=== PATIENT | female | born 1985 | race Caucasian/White ===

== ENCOUNTER 2019-06-30 06:38 | Emergency (ER) | payer OTHER, SELFPAY ==
[2019-06-30 06:49] VITALS: BP 155/92; PULSE 93; RESP 18; TEMP 36.9; O2SAT 97
[2019-06-30 06:57] VITALS: BP 155/92; PULSE 93; RESP 18; TEMP 36.9; O2SAT 97
[2019-06-30 07:28] LABS: Add Manual Diff / Slide Review NO; Basophils Absolute Auto 100 /uL (0-100); Basophils Percent Auto 0.7 % (0-2); Eosinophils Absolute Auto 200 /uL (0-450); Eosinophils Percent Auto 2.6 % (2-4); Hematocrit 40.2 % (36-46); Hemoglobin 13.9 g/dL (12.0-16.0); Lymphocytes Absolute Auto 1500 /uL (1100-4500); Lymphocytes Percent Auto 17.4 % (25-40); Mean Corpuscular HGB Conc 34.5 % (30-36); Mean Corpuscular Hemoglobin 29.9 PG (26-34); Mean Corpuscular Volume 86.7 fL (80-100); Monocytes Absolute Auto 800 /uL (0-900); Monocytes Percent Auto 8.8 % (3-14); Neutrophils Absolute Auto 6300 /uL (1500-7000); Neutrophils Percent Auto 70.5 % (50-75); Platelet Count 410 X10^3/uL (150-400); Red Blood Cell Count 4.64 X10^6/uL (4.0-5.2); Red Cell Distribution Width 13.4 % (11.6-14.8); White Blood Cell Count 8.9 X10^3/uL (4.5-11.0)
[2019-06-30 07:33] LABS: Alanine Aminotransferase 24 IU/L (9-52); Albumin 3.9 g/dL (3.5-5.0); Albumin Globulin Ratio 1.3 (1.0-2.8); Alkaline Phosphatase 60 U/L (38-126); Aspartate Aminotransferase 23 IU/L (14-36); BUN Creatinine Ratio 16.4 (6-22); Bilirubin Total 0.7 mg/dL (0.2-1.3); Blood Urea Nitrogen 18 mg/dL (7-17); Calcium 9.4 mg/dL (8.4-10.2); Carbon Dioxide 30 mmol/L (22-32); Chloride 98 mmol/L (98-107); Estimated Glomerular Filt Rate 56.5 mL/min (>60); Globulin 2.9 g/dL (1.7-4.1); Glucose 163 mg/dL (70-100); HEMOLYSIS < 15 (0-50); Lipase 78 U/L (23-300); Potassium 3.7 mmol/L (3.4-5.1); Sodium 138 mmol/L (137-145); Total Protein 6.8 g/dL (6.3-8.2)
--- NOTE | 2019-06-30 07:33 | ED_ITS ---
HPI - Abdominal Pain General Chief Complaint: Abdominal Pain Stated Complaint: Vomiting and lower abdominal pain Time Seen by Provider: 06/30/19 07:01 Source: patient Mode of arrival: ambulatory Limitations: no limitations History of Present Illness HPI narrative: Patient is a 34 year old female with history of lupus, presenting with vomiting for 2 days and left lower quadrant pain. She feels hot and sweaty at times but usually right before she vomits. She has vomited numerous times over the past several days. MD complaint: abdominal pain Pain Consistency: intermittent Severity: moderate Quality: cramping Radiation: LLQ Related Data Home Medications Medication Instructions Recorded Confirmed candesartan 32 mg PO DAILY 06/30/19 06/30/19 carvedilol 12.5 mg PO [id number] 06/30/19 06/30/19 chlorthalidone 50 mg PO DAILY 06/30/19 06/30/19 escitalopram oxalate 10 mg PO DAILY 06/30/19 06/30/19 escitalopram oxalate 20 mg PO DAILY 06/30/19 06/30/19 hydroxychloroquine 400 mg PO DAILY 06/30/19 06/30/19 mycophenolate sodium 1,080 mg PO BID 06/30/19 06/30/19 quetiapine 25 mg PO DAILY 06/30/19 06/30/19 torsemide 60 mg PO [id number] 06/30/19 06/30/19 venlafaxine 37.5 mg PO BID 06/30/19 06/30/19 Previous Rx's Medication Instructions Recorded ondansetron 4 mg PO Q6-8H PRN #10 tab 06/30/19 Allergies Allergy/AdvReac Type Severity Reaction Status Date / Time cephalexin [CEPHALEXIN] Allergy Unknown Verified 06/30/19 07:33 Penicillins [PENICILLINS] Allergy Unknown Verified 06/30/19 07:33 Sulfa (Sulfonamide Allergy Unknown Verified 06/30/19 07:33 Antibiotics) [SULFA (SULFONAMIDE ANTIBIOTICS)] Review of Systems Review of Systems GENERAL: Denies chills, fatigue, malaise, fever, sweats, travel HEENT: Denies sinus pain, ear pain, sore throat, difficulty swallowing, neck pain RESPIRATORY: Denies dyspnea, cough, wheezing, hemoptysis, sputum. CARDIOVASCULAR: Denies chest pain, palpitations, orthopnea, edema GASTROINTESTINAL: See HPI : Denies dysuria, frequency, incontinence, hematuria, urinary retention, flank pain. MUSCULOSKELETAL: Denies weakness, joint pain, or bony pain SKIN: No rash, no erythema, no pruritus NEUROLOGIC: Denies weakness, dizziness, headache, numbness, change in speech, confusion PSYCHIATRIC: No concerning psychosocial issues. 12 point review of systems is negative except for those stated above and HPI [facility] Medical History Lupus (Acute) Social History Smoking Status: Current every day smoker Social History Smoking Status: Current every day smoker Exam Initial Vital Signs Initial Vital Signs: Vital Signs Temperature 98.5 F 06/30/19 06:49 Pulse Rate 93 H 06/30/19 06:49 Respiratory Rate 18 06/30/19 06:49 Blood Pressure 155/92 H 06/30/19 06:49 Pulse Oximetry 97 06/30/19 06:49 GENERAL: Well-appearing, well-nourished and in no acute distress. HEENT: Head atraumatic,EOMI, pupils reactive, face symmetric, moist mucous membranes CARDIOVASCULAR: Regular rate and rhythm without murmurs, rubs or gallops. RESPIRATORY: Breath sounds equal bilaterally, no wheezes rales or rhonchi. ABDOMEN: Soft, tender left lower quadrant no guarding no rebound positive bowel sounds EXTREMITIES: Normal range of motion, no clubbing or edema. Neurovascularly intact NEUROLOGICAL: Alert and oriented x4.Normal gait and speech. Cranial nerves II through XII grossly intact. SKIN: Warm, dry, no laceration, no petechiae, no rashes or lesions. Course Orders Ordered: ED Orders 06/30/19 06:40 Complete Blood Count AUTO DIFF Stat Comprehensive Metabolic Panel Stat Lipase Stat 06/30/19 07:20 Urine Microscopic Stat 06/30/19 08:11 CT abdomen pelvis wo con Stat Discontinued Medications Sodium Chloride (Normal Saline 0.9%) 1,000 mls @ 1,000 mls/hr IV CONT LLOYD Last Infusion: 06/30/19 08:49 Dose: 0 mls/hr Admin: 06/30/19 07:34 Dose: 1,000 mls/hr Morphine Sulfate (Morphine) 4 mg IV NOW ONE Stop: 06/30/19 07:28 Last Admin: 06/30/19 07:39 Dose: 4 mg Ondansetron HCl (Zofran) 4 mg IV NOW ONE Stop: 06/30/19 07:28 Last Admin: 06/30/19 07:37 Dose: 4 mg Ondansetron HCl (Zofran) 4 mg IV NOW ONE Stop: 06/30/19 09:22 Last Admin: 06/30/19 09:36 Dose: 4 mg Pantoprazole Sodium (Protonix) 40 mg IV NOW ONE Stop: 06/30/19 09:22 Last Admin: 06/30/19 09:39 Dose: 40 mg Vital Signs - 8 hr 06/30/19 06:49 06/30/19 06:57 06/30/19 07:36 Temperature 98.5 F 98.5 F Pulse Rate 93 H 93 H 84 Respiratory Rate 18 18 16 Blood Pressure 155/92 H 155/92 H Blood Pressure [Left Arm] 143/92 H Pulse Oximetry 97 97 97 06/30/19 09:15 06/30/19 09:45 Temperature Pulse Rate 73 72 Respiratory Rate 18 18 Blood Pressure Blood Pressure [Left Arm] 122/65 124/85 Pulse Oximetry 93 96 MDM - Abdominal Pain Lab Data Attestation: I reviewed the patient's lab results. Result diagrams: 06/30/19 06:40 06/30/19 06:40 Lab Results 06/30/19 06/30/19 06/30/19 Range/Units 06:40 06:40 07:20 WBC 8.9 (4.5-11.0) X10^3/uL RBC 4.64 (4.0-5.2) X10^6/uL Hgb 13.9 (12.0-16.0) g/dL Hct 40.2 (36-46) % MCV 86.7 (80-100) fL MCH 29.9 (26-34) PG MCHC 34.5 (30-36) % RDW 13.4 (11.6-14.8) % Plt Count 410 H (150-400) X10^3/uL Neut % (Auto) 70.5 (50-75) % Lymph % (Auto) 17.4 L (25-40) % Brown % (Auto) 8.8 (3-14) % Eos % (Auto) 2.6 (2-4) % Baso % (Auto) 0.7 (0-2) % Neut # (Auto) 6300 (0308-1103) /uL Lymph # (Auto) 1500 (7557-3334) /uL Brown # (Auto) 800 (0-900) /uL Eos # (Auto) 200 (0-450) /uL Baso # (Auto) 100 (0-100) /uL Sodium 138 (137-145) mmol/L Potassium 3.7 (3.4-5.1) mmol/L Chloride 98 (98-107) mmol/L Carbon Dioxide 30 (22-32) mmol/L BUN 18 H (7-17) mg/dL Creatinine 1.10 H (0.52-1.04) mg/dL Estimated GFR 56.5 L (>60) mL/min BUN/Creatinine Ratio 16.4 (6-22) Glucose 163 H (70-100) mg/dL Calcium 9.4 (8.4-10.2) mg/dL Total Bilirubin 0.7 (0.2-1.3) mg/dL AST 23 (14-36) IU/L ALT 24 (9-52) IU/L Alkaline Phosphatase 60 (38-126) U/L Total Protein 6.8 (6.3-8.2) g/dL Albumin 3.9 (3.5-5.0) g/dL Globulin 2.9 (1.7-4.1) g/dL Albumin/Globulin Ratio 1.3 (1.0-2.8) Lipase 78 (23-300) U/L Urine RBC 5-10/hpf H (0-5/HPF) Urine WBC 1-5/hpf (0-5/HPF) Ur Squamous Epith Cells 5-10 /hpf H (0-5/HPF) Amorphous Sediment 2+ Urine Bacteria None seen (None) Hyaline Casts 1-5/lpf (None) Ur Culture Indicated? Cult not indicated Point of care testing: Point of Care Testing Test Results Negative Urine Dip Bedside Urine Glucose Negative Bedside Urine Bilirubin ++ 2 Bedside Urine Ketone - Negative Urine Specific [place] 1.030 Bedside Urine Occult Blood ++ Bedside Urine pH 5.5 Bedside Urine Protein ++ 100 Bedside Urine Urobilinogen +/- 1mg Bedside Urine Nitrite - Negative Bedside Urine Leukocytes - Negative Esterase Imaging Data CT scan - abdomen: Radiologist's impression: PROCEDURE: CT ABDOMEN PELVIS WO CON INDICATIONS: left lower quad pain vomiting TECHNIQUE: Noncontrast 5 mm thick sections acquired from the diaphragms to the symphysis. 5 mm thick coronal and sagittal reformats were then performed. For radiation dose reduction, the following was used: automated exposure control, adjustment of mA and/or kV according to patient size. COMPARISON: None. FINDINGS: Image quality: Excellent. Lung bases: Lung bases are clear. Heart size is normal. Urinary system: Both kidneys are normal in size. No kidney stones. No hydronephrosis or perinephric fat stranding. Both ureters appear non-dilated throughout their expected courses. Bladder wall thickness is normal; no calcified bladder stones. Other solid organs: Liver is normal in size. Gallbladder appears normal. Pancreas is normal in contours. Spleen is normal in size. No adrenal nodules. Peritoneum and bowel: Unenhanced bowel loops demonstrate normal wall thickness and caliber. No free fluid or air. Nodes and vessels: No retroperitoneal or mesenteric adenopathy by size criteria. Aorta and inferior vena cava are normal in caliber. Abdominal wall: No ventral hernias. Pelvis: No free pelvic fluid. No inguinal hernias or adenopathy. Pelvic phleboliths on the right are present near the expected course of the distal right ureter but no ureteral stone is found and no hydroureter or hydronephrosis associated with fat appearance is present. Bones: No suspicious bony lesions. No vertebral body compression fractures. IMPRESSION: No clinical history is that of urinary tract infection and possible hydronephrosis or nephrolithiasis. No urinary tract stone is found, and no area of inflammation is identified. The study is performed without oral or intravenous contrast and depending on the clinical status followup by repeat CT scanning with contrast may be warranted if acute appendicitis or diverticulitis is clinically suspected. Dictated by: Jone Hahn M.D. on 06/30/2019 at 8:52 MDM Narrative Medical decision making narrative: Patient tolerating oral fluids overall feeling much better. At this time no cause of abdominal pain found. Discharge Plan Departure Patient Disposition: Home Clinical Impression: Gastroenteritis Discharge Date/Time: 06/30/19 10:33 Interventions: ED Discharge Assessment Last Done: 06/30/19 10:27 Instructions: DI for Viral Gastroenteritis -- Adult Activity Restrictions/Additional Instructions: *You have been diagnosed with gastroenteritis *What to do: At this time blood work and CT do not show any abnormality. Increase fluids as tolerated. *Continue to take medications as directed Zofran 4 mg every 6-8 hours if needed for nausea vomiting *Follow up with your primary care provider in 2-3 days *Return to ER if you should have increasing abdominal pain persistent vomiting not tolerating fluids or any new, worsening or concerning symptoms Prescriptions: New ondansetron 4 mg tablet,disintegrating 4 mg PO Q6-8H PRN (Reason: nausea and vomiting) Qty: 10 RF: 0 No Action quetiapine 25 mg tablet 25 mg PO DAILY RF: 0 carvedilol 12.5 mg tablet 12.5 mg PO BIDX30 RF: 0 torsemide 20 mg tablet 60 mg PO BIDX30 RF: 0 chlorthalidone 50 mg tablet 50 mg PO DAILY RF: 0 venlafaxine 37.5 mg tablet 37.5 mg PO BID RF: 0 candesartan 32 mg tablet 32 mg PO DAILY RF: 0 hydroxychloroquine 200 mg tablet 400 mg PO DAILY RF: 0 escitalopram oxalate 10 mg tablet 10 mg PO DAILY RF: 0 escitalopram oxalate 20 mg tablet 20 mg PO DAILY RF: 0 mycophenolate sodium 360 mg tablet,delayed release (DR/EC) 1,080 mg PO BID RF: 0
[2019-06-30] MEDS: SODIUM CHLORIDE 0.9% 1,000 ML 1000 ML IV (07:34)
[2019-06-30 07:36] VITALS: BP 143/92; PULSE 84; RESP 16; O2SAT 97
[2019-06-30 07:37] LABS: Bacteria Urine None Seen
[2019-06-30] MEDS: ONDANSETRON 4 MG/2 ML INJ IV ×2 (07:37→09:36)
[2019-06-30] MEDS: MORPHINE 4 MG/ML INJ IV (07:39)
[2019-06-30 07:44] LABS: RBC Urine 5-10/HPF (0-5/HPF)
[2019-06-30 07:45] LABS: Amorphous Sediment Urine 2+; Culture Indicated Urine Cult Not Indicated; Hyaline Casts Urine 1-5/LPF; Squamous Epithelial Cell Urine 5-10 /HPF (0-5/HPF); WBC Urine 1-5/HPF (0-5/HPF)
--- NOTE | 2019-06-30 08:11 | DI.CT.S_ITS ---
PROCEDURE: CT ABDOMEN PELVIS WO CON INDICATIONS: left lower quad pain vomiting TECHNIQUE: Noncontrast 5 mm thick sections acquired from the diaphragms to the symphysis. 5 mm thick coronal and sagittal reformats were then performed. For radiation dose reduction, the following was used: automated exposure control, adjustment of mA and/or kV according to patient size. COMPARISON: None. FINDINGS: Image quality: Excellent. Lung bases: Lung bases are clear. Heart size is normal. Urinary system: Both kidneys are normal in size. No kidney stones. No hydronephrosis or perinephric fat stranding. Both ureters appear non-dilated throughout their expected courses. Bladder wall thickness is normal; no calcified bladder stones. Other solid organs: Liver is normal in size. Gallbladder appears normal. Pancreas is normal in contours. Spleen is normal in size. No adrenal nodules. Peritoneum and bowel: Unenhanced bowel loops demonstrate normal wall thickness and caliber. No free fluid or air. Nodes and vessels: No retroperitoneal or mesenteric adenopathy by size criteria. Aorta and inferior vena cava are normal in caliber. Abdominal wall: No ventral hernias. Pelvis: No free pelvic fluid. No inguinal hernias or adenopathy. Pelvic phleboliths on the right are present near the expected course of the distal right ureter but no ureteral stone is found and no hydroureter or hydronephrosis associated with fat appearance is present. Bones: No suspicious bony lesions. No vertebral body compression fractures. IMPRESSION: No clinical history is that of urinary tract infection and possible hydronephrosis or nephrolithiasis. No urinary tract stone is found, and no area of inflammation is identified. The study is performed without oral or intravenous contrast and depending on the clinical status followup by repeat CT scanning with contrast may be warranted if acute appendicitis or diverticulitis is clinically suspected. Dictated by: Jone Hahn M.D. on 06/30/2019 at 8:52 Approved by: Jone Hahn M.D. on 06/30/2019 at 8:54
[2019-06-30 09:15] VITALS: BP 122/65; PULSE 73; RESP 18; O2SAT 93
[2019-06-30] MEDS: PANTOPRAZOLE 40 MG VIAL IV (09:39)
[2019-06-30 09:45] VITALS: BP 124/85; PULSE 72; RESP 18; O2SAT 96
== END 2019-06-30 10:33 | disposition home or self-care (01) ==
PROVIDERS: Emergency Provider Emergency Medicine
DX: K52.9 Noninfective gastroenteritis and colitis, unspecified (principal)
CPT/HCPCS: 36591; 74176; 80053; 81003; 81015; 81025; 83690; 85025; 96361; 96374; 96375; 96376; 99283; 99284; C9113; J2270; J2405

== ENCOUNTER 2020-01-03 20:54 | Emergency (ER) | payer OTHER, SELFPAY ==
[2020-01-03 20:57] VITALS: BP 213/126; PULSE 113; RESP 20; TEMP 36; O2SAT 100; BMI 38.4
--- NOTE | 2020-01-03 21:08 | DI.RAD.S_ITS ---
PROCEDURE: XR CHEST 1V INDICATIONS: chest pain TECHNIQUE: One view of the chest was acquired. COMPARISON: [facility], CR, XR CHEST 2 VIEWS, 08/02/2010, 10:33. FINDINGS: Surgical changes and devices: None. Lungs and pleura: An incomplete inspiratory result is noted, causing a crowded appearance to the lung markings. No focal infiltrates are seen. No pneumothorax or significant pleural effusions are seen. Mediastinum: Mediastinal contours appear normal. Heart size is normal. Bones and chest wall: No suspicious bony lesions. Age-appropriate bony degenerative changes are seen. Overlying soft tissues appear unremarkable. IMPRESSION: Limited portable chest examination, without a significant cardiopulmonary abnormality identified. Dictated by: Fredrick Mg M.D. on 01/03/2020 at 21:54 Approved by: Fredrick Mg M.D. on 01/03/2020 at 21:55
--- NOTE | 2020-01-03 21:15 | ED_ITS ---
HPI - SOB/Dyspnea General Chief Complaint: Shortness of Breath/Dyspnea Stated Complaint: SHORT OF BREATH, SWELLING ALL OVER Time Seen by Provider: 01/03/20 21:15 Source: patient Mode of arrival: Ambulatory Limitations: no limitations History of Present Illness HPI Narrative: The patient has a history of renal failure, as a result of lupus. She has required prior hospitalization 2 years ago for acute renal failure. She presents today because she developed swelling in her lower extremities, seemingly showing up just today. She has no associated chest pain or dyspnea. She has been making urine. She has no nausea, vomiting diarrhea. She does feel like her abdomen is a little distended. She describes recent URI symptoms with runny nose and congestion. She has no productive cough or dyspnea. She feels l angeline she is having a lupus flare. Related Data Home Medications Medication Instructions Recorded Confirmed candesartan 32 mg PO DAILY 06/30/19 06/30/19 carvedilol 12.5 mg PO [id number] 06/30/19 06/30/19 chlorthalidone 50 mg PO DAILY 06/30/19 06/30/19 escitalopram oxalate 10 mg PO DAILY 06/30/19 06/30/19 escitalopram oxalate 20 mg PO DAILY 06/30/19 06/30/19 hydroxychloroquine 400 mg PO DAILY 06/30/19 06/30/19 mycophenolate sodium 1,080 mg PO BID 06/30/19 06/30/19 quetiapine 25 mg PO DAILY 06/30/19 06/30/19 torsemide 60 mg PO [id number] 06/30/19 06/30/19 venlafaxine 37.5 mg PO BID 06/30/19 06/30/19 Previous Rx's Medication Instructions Recorded ondansetron 4 mg PO Q6-8H PRN #10 tab 06/30/19 Allergies Allergy/AdvReac Type Severity Reaction Status Date / Time cephalexin [CEPHALEXIN] Allergy Unknown Verified 01/03/20 21:02 Penicillins [PENICILLINS] Allergy Unknown Verified 01/03/20 21:02 Sulfa (Sulfonamide Allergy Unknown Verified 01/03/20 21:02 Antibiotics) [SULFA (SULFONAMIDE ANTIBIOTICS)] Review of Systems Review of Systems ROS Unobtainable: All systems reviewed & are unremarkable except as noted in HPI and below Constitutional Constitutional: Reports body ache(s), Denies chills, Denies fever(s), Denies lethargy and Denies weakness Eyes Eyes: Denies change in vision and Denies loss of vision ENT Ears, Nose, Mouth, and Throat: Denies change in voice, Denies vertigo, Denies dizziness, Denies neck pain and Denies sore throat Cardiovascular Cardiovascular: Denies chest pain, Denies lightheadedness, Denies palpitations, Denies dyspnea and Denies orthopnea Respiratory Respiratory: Denies cough, Denies dyspnea and Denies wheezing Gastrointestinal Gastrointestinal: Denies abdominal pain, Denies change in bowel habits and Reports vomiting Genitourinary Genitourinary: Denies dysuria Comments: Normal urine output Musculoskeletal Musculoskeletal: Denies back pain and Denies neck pain Comments: Lower extremity edema Integumentary/Breasts Skin/Breast: Denies pruritus, Denies erythema, Denies rash and Denies wounds Neurologic Neurologic: Denies confusion, Denies vertigo, Denies dizziness, Denies loss of vision and Denies weakness Psychiatric Psychiatric: Denies confusion Endocrine Endocrine: Denies palpitations Hematologic/Lymphatic Hematologic/Lymphatic: Denies easy bruising Allergic/Immunologic Allergic/Immunologic: Denies wheezing Patient History Medical History (Updated 01/04/20 @ 08:04 by Son Kraus MD) History of nephrotic syndrome (Acute) Hypertension (Acute) Hypertensive emergency without congestive heart failure (Acute) Lupus (Acute) Surgical History (Updated 01/04/20 @ 07:46 by Son Kraus MD) Status post biopsy of kidney (Acute) Social History Smoking Status: Current every day smoker Smoking Status: Current every day smoker alcohol intake frequency: a few times a month Substance Use Type: does not use Exam Initial Vital Signs Initial Vital Signs: Vital Signs Temperature 96.8 F L 01/03/20 20:57 Pulse Rate 113 H 01/03/20 20:57 Respiratory Rate 20 01/03/20 20:57 Blood Pressure 213/126 H 01/03/20 20:57 Pulse Oximetry 100 01/03/20 20:57 Const General: cooperative, well developed and No ill appearing Nutritional Appearance: well nourished [facility] [place] Head: normocephalic and atraumatic Nose: external nose normal Mouth: oral mucosae normal and moist mucous membranes Teeth and gingiva: dentition normal Throat: tonsils normal and uvula midline Neck Neck: normal visual inspection and No JVD Lymphatic: No lymphedema Resp Effort & Inspection: normal respiratory effort, able to speak in complete sentences, no respiratory distress and no use of accessory muscles Auscultation: clear to auscultation bilaterally, no rales, no rhonchi and no wheezes Cardio Rate: regular rate Rhythm: regular rhythm Heart Sounds: no click, no gallops, no murmurs and no rubs Pulses: normal peripheral pulses GI Inspection: non-distended Palpation: soft, no hepatosplenomegaly, No guarding and No tender Auscultation: normal bowel sounds Back/Spine/Pelvis Back: normal to inspection and No CVA tenderness Skin General: no rashes or lesions noted and No petechiae Neuro General: alert, oriented x3, gait normal and no focal motor deficits Speech: speech normal Extrem General: full ROM and no calf tenderness Other: 2+ bilateral lower extremity edema. Course Course Course Narrative: The patient arrived with complaints about the edema. She has a history SLE, and complex hypertension current multiple medications. She had no chest pain or dyspnea. She has no history of CHF. She was admitted 2 years ago [facility] with acute renal failure. Those records reviewed. Her baseline creatinine was felt to be 0.7, she was about 1.5 at that time. She arrived there and hypertensive crisis. Upon arrival her initial systolic blood pressure was 200, then settled 170. Assessment was done. Her BP increased to 255 systolic. IV hydralazine was given, she developed a headache. IV labetalol was given. Her blood pressure improved to 200 systolic. The headache persisted. She had no confusion visual changes. She later developed nausea vomiting. Nicardipine drip was initiated. Head CT was done, no evidence of stroke. No acute changes. Her blood pressure improved to about 170s initially on nicardipine. Due to the machine was given Lasix 40 mg IV. After hearing the Lasix the blood pressure quickly improved to the 140s range. The nicardipine was titrated, I actually. The nicardipine when her blood pressures were in the 130s, afraid of over shooting. Without nicardipine she quickly resumed headaches and her blood pressure was back in 200 systolic. She is oriented, no mental status changes or neurologic deficits. The nicardipine was reintroduced. I also ordered Solu-Medrol due to the possibility of a lupus crisis. She has improved significantly through the hours here in the ER, I ordered her oral antihypertensive medications for her. Admission at this hospitals considered, the on-call hospitalist, PASTORA Mahoney, reviewed the case, but felt she needed a facility with nephrology and perhaps rheumatology. care in addition to hospitalization. Her CRP and ESR are no significant elevated. [facility] was contacted, but no beds are available. I discussed the case with the hospitalist at nearby [facility]. The case was reviewed with the Hospital, Dr. Caputo. The patient remains on the nicardipine drip, but is otherwise asymptomatic. Morning meds were given. The patient has been accepted to [facility]. Orders Ordered: ED Orders 01/03/20 23:12 Urine Culture Stat Urine Microscopic Stat 01/04/20 01:30 CT head/brain wo con Stat Candesartan Cilexetil (Atacand) 32 mg PO DAILY LLOYD Nicardipine HCl 25 mg/ Sodium (Chloride) 250 mls @ 50 mls/hr IV TITRATE LLOYD; Protocol Last Titration: 01/04/20 03:20 Dose: 0 mg/hr, 0 mls/hr Documented by: Titration: 01/04/20 02:59 Dose: 2.5 mg/hr, 25 mls/hr Documented by: Admin: 01/04/20 00:47 Dose: 5 mg/hr, 50 mls/hr Documented by: KEVIN Discontinued Medications Acetaminophen (Tylenol) 650 mg PO NOW ONE Stop: 01/04/20 00:46 Last Admin: 01/04/20 00:55 Dose: 650 mg Documented by: KEVIN Acetaminophen (Tylenol) 650 mg PO NOW ONE Stop: 01/04/20 05:59 Last Admin: 01/04/20 06:08 Dose: 650 mg Documented by: BARRY Carvedilol (Coreg) 12.5 mg PO NOW ONE Stop: 01/04/20 07:24 Chlorthalidone (Hygroton) 50 mg PO NOW ONE Stop: 01/04/20 07:24 Furosemide (Lasix) 40 mg IV NOW ONE Stop: 01/04/20 01:32 Last Admin: 01/04/20 06:12 Dose: Not Given Documented by: BARRY Hydralazine HCl (Apresoline) 20 mg IV NOW ONE Stop: 01/03/20 23:45 Last Admin: 01/03/20 23:53 Dose: 20 mg Documented by: BARRY Hydromorphone HCl (Dilaudid) 0.5 mg IV NOW ONE Stop: 01/04/20 06:34 Last Admin: 01/04/20 06:40 Dose: 0.5 mg Documented by: BARRY Labetalol HCl (Trandate) 20 mg IV NOW ONE Stop: 01/04/20 00:13 Last Admin: 01/04/20 00:17 Dose: 20 mg Documented by: BARRY Methylprednisolone (Solu-Medrol 125 Mg Vial) 125 mg IV NOW ONE Stop: 01/04/20 07:20 Last Admin: 01/04/20 07:31 Dose: 125 mg Documented by: BARRY Morphine Sulfate (Morphine) 4 mg IV NOW ONE Stop: 01/04/20 06:26 Last Admin: 01/04/20 06:40 Dose: Not Given Documented by: BARRY Ondansetron HCl (Zofran) 4 mg IV NOW ONE Stop: 01/04/20 05:59 Last Admin: 01/04/20 06:08 Dose: 4 mg Documented by: BARRY Vital Signs Vital signs: Vital Signs - 8 hr 01/04/20 00:17 01/04/20 00:40 01/04/20 02:42 Pulse Rate 88 87 93 H Respiratory Rate 27 H 24 Blood Pressure 223/153 H Blood Pressure [Left Arm] 200/91 H 170/85 H Pulse Oximetry 99 95 01/04/20 02:57 01/04/20 03:42 01/04/20 04:33 Pulse Rate 91 H 90 89 Respiratory Rate 21 19 25 H Blood Pressure Blood Pressure [Left Arm] 147/79 H 137/82 130/76 Pulse Oximetry 96 97 98 01/04/20 05:30 01/04/20 06:45 Pulse Rate 90 90 Respiratory Rate 24 27 H Blood Pressure Blood Pressure [Left Arm] 146/93 H 177/89 H Pulse Oximetry 98 97 MDM - SOB/Dyspnea Lab Data Result diagrams: 01/03/20 21:30 01/03/20 21:30 Labs: Lab Results 01/03/20 01/03/20 01/03/20 Range/Units 21:30 21:30 21:30 WBC 7.5 (4.5-11.0) X10^3/uL RBC 4.80 (4.0-5.2) X10^6/uL Hgb 14.3 (12.0-16.0) g/dL Hct 41.3 (36-46) % MCV 86.0 (80-100) fL MCH 29.9 (26-34) PG MCHC 34.7 (30-36) % RDW 13.7 (11.6-14.8) % Plt Count 425 H (150-400) X10^3/uL Neut % (Auto) 58.8 (50-75) % Lymph % (Auto) 28.7 (25-40) % [place] % (Auto) 8.9 (3-14) % Eos % (Auto) 1.8 L (2-4) % Baso % (Auto) 1.8 (0-2) % Neut # (Auto) 4400 (6294-0323) /uL Lymph # (Auto) 2200 (8332-7969) /uL [place] # (Auto) 700 (0-900) /uL Eos # (Auto) 100 (0-450) /uL Baso # (Auto) 100 (0-100) /uL ESR (0-20) MM/HR PT 10.8 (10.1-12.7) SECONDS INR 0.9 (0.9-1.3) APTT 34 (26.4-36.2) SECONDS Sodium 137 (137-145) mmol/L Potassium 3.6 (3.4-5.1) mmol/L Chloride 106 (98-107) mmol/L Carbon Dioxide 23 (22-32) mmol/L BUN 12 (7-17) mg/dL Creatinine 0.50 L (0.52-1.04) mg/dL Estimated GFR > 60.0 (>60) mL/min BUN/Creatinine Ratio 24.0 H (6-22) Glucose 133 H (70-100) mg/dL Calcium 9.1 (8.4-10.2) mg/dL Total Bilirubin 0.3 (0.2-1.3) mg/dL AST 27 (14-36) IU/L ALT 20 (<35) IU/L Alkaline Phosphatase 62 (38-126) U/L Total Creatine Kinase 57 (30-135) U/L CK-MB (CK-2) TNP CK-MB (CK-2) Rel Index TNP Troponin I < 0.012 (0.01-0.034) ng/mL C-Reactive Protein (<1.0) mg/dL NT-Pro-B Natriuret Pep (<125) pg/mL Total Protein 6.7 (6.3-8.2) g/dL Albumin 3.7 (3.5-5.0) g/dL Globulin 3.0 (1.7-4.1) g/dL Albumin/Globulin Ratio 1.2 (1.0-2.8) Lipase 117 (23-300) U/L Urine RBC (0-5/HPF) Urine WBC (0-5/HPF) Ur Squamous Epith Cells (0-5/HPF) Amorphous Sediment Urine Bacteria (None) Ur Culture Indicated? 01/03/20 01/03/20 01/03/20 Range/Units 21:30 21:30 23:12 WBC (4.5-11.0) X10^3/uL RBC (4.0-5.2) X10^6/uL Hgb (12.0-16.0) g/dL Hct (36-46) % MCV (80-100) fL MCH (26-34) PG MCHC (30-36) % RDW (11.6-14.8) % Plt Count (150-400) X10^3/uL Neut % (Auto) (50-75) % Lymph % (Auto) (25-40) % [place] % (Auto) (3-14) % Eos % (Auto) (2-4) % Baso % (Auto) (0-2) % Neut # (Auto) (0117-7167) /uL Lymph # (Auto) (5141-5314) /uL [place] # (Auto) (0-900) /uL Eos # (Auto) (0-450) /uL Baso # (Auto) (0-100) /uL ESR 33 H (0-20) MM/HR PT (10.1-12.7) SECONDS INR (0.9-1.3) APTT (26.4-36.2) SECONDS Sodium (137-145) mmol/L Potassium (3.4-5.1) mmol/L Chloride (98-107) mmol/L Carbon Dioxide (22-32) mmol/L BUN (7-17) mg/dL Creatinine (0.52-1.04) mg/dL Estimated GFR (>60) mL/min BUN/Creatinine Ratio (6-22) Glucose (70-100) mg/dL Calcium (8.4-10.2) mg/dL Total Bilirubin (0.2-1.3) mg/dL AST (14-36) IU/L ALT (<35) IU/L Alkaline Phosphatase (38-126) U/L Total Creatine Kinase (30-135) U/L CK-MB (CK-2) CK-MB (CK-2) Rel Index Troponin I (0.01-0.034) ng/mL C-Reactive Protein 0.6 (<1.0) mg/dL NT-Pro-B Natriuret Pep 37 (<125) pg/mL Total Protein (6.3-8.2) g/dL Albumin (3.5-5.0) g/dL Globulin (1.7-4.1) g/dL Albumin/Globulin Ratio (1.0-2.8) Lipase (23-300) U/L Urine RBC 1-5/hpf (0-5/HPF) Urine WBC 1-5/hpf (0-5/HPF) Ur Squamous Epith Cells 1-5 /hpf (0-5/HPF) Amorphous Sediment 2+ Urine Bacteria Moderate (10-30) H (None) Ur Culture Indicated? Specimen cultured Urine Dip Bedside Urine Glucose Negative Bedside Urine Bilirubin - Negative Bedside Urine Ketone - Negative Bedside Urine Occult Blood +++ Bedside Urine Protein +++ 300 Bedside Urine Urobilinogen - Negative Bedside Urine Nitrite + Positive Bedside Urine Leukocytes - Negative Esterase Imaging Data CT scan - head: Radiologist's Impression: Normal ECG Data Attestation: I personally reviewed and interpreted this ECG as follows: (Normal sinus rhythm rate 93 beats per minute. Normal intervals. No ectopy. No acute ST T wave changes.) Critical Care Time Critical Care Time Critical Care Time: Yes Total Critical Care Time: 120 Attestation: Critical care time included the patient initial assessment multiple reassessments. Time included chart review. Time included review of lab, radiology, and EKG data. Time included critical decisions regarding her blood pressure management. Time included multiple consultation Raish in transfer. Discharge Plan Departure Patient Disposition: [facility] Clinical Impression: H/O hypertensive crisis, Lupus, Edema, Headache Prescriptions: No Action ondansetron 4 mg tablet,disintegrating 4 mg PO Q6-8H PRN (Reason: nausea and vomiting) Qty: 10 RF: 0 quetiapine 25 mg tablet 25 mg PO DAILY RF: 0 carvedilol 12.5 mg tablet 12.5 mg PO BIDX30 RF: 0 torsemide 20 mg tablet 60 mg PO BIDX30 RF: 0 chlorthalidone 50 mg tablet 50 mg PO DAILY RF: 0 venlafaxine 37.5 mg tablet 37.5 mg PO BID RF: 0 candesartan 32 mg tablet 32 mg PO DAILY RF: 0 hydroxychloroquine 200 mg tablet 400 mg PO DAILY RF: 0 escitalopram oxalate 10 mg tablet 10 mg PO DAILY RF: 0 escitalopram oxalate 20 mg tablet 20 mg PO DAILY RF: 0 mycophenolate sodium 360 mg tablet,delayed release (DR/EC) 1,080 mg PO BID RF: 0
--- NOTE | 2020-01-03 21:34 | PC.NURSE ---
woke feeling normal, progressive swelling in lower extremities, hands and face. Reports SOB with any excertion. Patient feels like her lupus is flaring up, cold sore on lower lip. Stress and recent breakup. Feels similar to when she went into kidney failure in 2018.
[2020-01-03 21:45] LABS: INR 0.9 (0.9-1.3); Prothrombin Time 10.8 SECONDS (10.1-12.7)
[2020-01-03 21:47] LABS: Add Manual Diff / Slide Review NO; Basophils Absolute Auto 100 /uL (0-100); Basophils Percent Auto 1.8 % (0-2); Eosinophils Absolute Auto 100 /uL (0-450); Eosinophils Percent Auto 1.8 % (2-4); Hematocrit 41.3 % (36-46); Hemoglobin 14.3 g/dL (12.0-16.0); Lymphocytes Absolute Auto 2200 /uL (1100-4500); Lymphocytes Percent Auto 28.7 % (25-40); Mean Corpuscular HGB Conc 34.7 % (30-36); Mean Corpuscular Hemoglobin 29.9 PG (26-34); Monocytes Absolute Auto 700 /uL (0-900); Monocytes Percent Auto 8.9 % (3-14); Neutrophils Absolute Auto 4400 /uL (1500-7000); Neutrophils Percent Auto 58.8 % (50-75); PTT Partial Thromboplastin Tim 34 SECONDS (26.4-36.2); Platelet Count 425 X10^3/uL (150-400); Red Cell Distribution Width 13.7 % (11.6-14.8); White Blood Cell Count 7.5 X10^3/uL (4.5-11.0)
[2020-01-03 21:48] LABS: Alanine Aminotransferase 20 IU/L (<35); Albumin 3.7 g/dL (3.5-5.0); Albumin Globulin Ratio 1.2 (1.0-2.8); Alkaline Phosphatase 62 U/L (38-126); Aspartate Aminotransferase 27 IU/L (14-36); Bilirubin Total 0.3 mg/dL (0.2-1.3); Blood Urea Nitrogen 12 mg/dL (7-17); Calcium 9.1 mg/dL (8.4-10.2); Carbon Dioxide 23 mmol/L (22-32); Chloride 106 mmol/L (98-107); Creatine Kinase 57 U/L (30-135); Estimated Glomerular Filt Rate > 60.0 mL/min (>60); Glucose 133 mg/dL (70-100); HEMOLYSIS 25 (0-50); Lipase 117 U/L (23-300); Potassium 3.6 mmol/L (3.4-5.1); Sodium 137 mmol/L (137-145); Total Protein 6.7 g/dL (6.3-8.2)
[2020-01-03 22:00] LABS: C-Reactive Protein Quant 0.6 mg/dL (<1.0); Troponin I < 0.012 ng/mL (0.01-0.034)
[2020-01-03 22:05] LABS: NT-proBNP (BNP-Adult 18+) 37 pg/mL (<125)
[2020-01-03 22:10] LABS: Erythrocyte Sedimentation Rate 33 MM/HR (0-20)
[2020-01-03 23:43] LABS: Amorphous Sediment Urine 2+; Bacteria Urine Moderate (10-30); Culture Indicated Urine Specimen Cultured; RBC Urine 1-5/HPF (0-5/HPF); Squamous Epithelial Cell Urine 1-5 /HPF (0-5/HPF); WBC Urine 1-5/HPF (0-5/HPF)
[2020-01-03] MEDS: HYDRALAZINE 20 MG/ML VIAL IV (23:53)
[2020-01-04] VITALS (13 sets, daily range): BP systolic 130–223; BP diastolic 70–153; PULSE 82–95; RESP 18–27; TEMP 36.7; O2SAT 95–99
[2020-01-04] MEDS: LABETALOL 20 MG/4 ML SYRINGE IV (00:17)
[2020-01-04] MEDS: NICARDIPINE 25 MG in SODIUM CHLORIDE 0.9% 240 ML 50 ML IV (00:47)
[2020-01-04] MEDS: ACETAMINOPHEN 325 MG TABLET 650 MG PO ×2 (00:55→06:08)
--- NOTE | 2020-01-04 01:30 | DI.CT.S_ITS ---
PROCEDURE: CT HEAD/BRAIN WO CON INDICATIONS: Hypertensive crisis. Headache. TECHNIQUE: Noncontrast 4.5 mm thick angled axial sections acquired from the foramen magnum to the vertex, with coronal and sagittal reformats. For radiation dose reduction, the following was used: automated exposure control, adjustment of mA and/or kV according to patient size. COMPARISON: None. FINDINGS: Image quality: Excellent. CSF spaces: Basal cisterns are patent. No extra-axial fluid collections. Ventricles are normal in size and shape. Brain: No midline shift. No intracranial masses or hemorrhage. Santacruz-white matter interface is normal. Skull and face: Calvarium and visualized facial bones are intact, without suspicious lesions. Sinuses: Visualized sinuses and mastoids are clear. IMPRESSION: No acute intracranial disease process. Dictated by: Palmira Teague MD, PhD on 01/04/2020 at 7:24 Approved by: Palmira Teague MD, PhD on 01/04/2020 at 7:25
--- NOTE | 2020-01-04 05:59 | PC.NURSE ---
patient asked for tylenol for headache and stated she is feeling nauseous. Provider notified, orders received for zofran and tylenol.
[2020-01-04] MEDS: ONDANSETRON 4 MG/2 ML INJ IV (06:08)
[2020-01-04] MEDS: HYDROMORPHONE 0.5 MG INJ IV (06:40)
[2020-01-04] MEDS: methylPREDNISolone 125 MG/2 ML VIAL IV (07:31)
[2020-01-04] MEDS: CHLORTHALIDONE 25 MG TABLET 50 MG PO (08:10)
[2020-01-04] MEDS: carvediloL 12.5 MG TABLET PO (08:10)
[2020-01-04] MEDS: CANDESARTAN 16 MG TABLET 32 MG PO (08:11)
--- NOTE | 2020-01-04 08:12 | PC.NURSE ---
received pt on 2 mg/ hr or 20 ml/ hour Nicardipine gtt. Drip was restarted by curtain worker RN.
[2020-01-04] MEDS: FUROSEMIDE 40 MG/4 ML VIAL IV (08:29)
--- NOTE | 2020-01-04 09:07 | PC.NURSE ---
pt transferred to [facility] with Nicardipine gtt infusing at 20 ml/hr or 2 mg/hr. Bp 140/76, hr 91, 16, pulse ox 97 percent. pt ambulated to bathroom prior to transport to [facility].
== END 2020-01-04 09:05 | disposition short-term general hospital (02) ==
PROVIDERS: Emergency Provider Emergency Medicine
DX: I16.1 Hypertensive emergency (principal); R60.9 Edema, unspecified; M32.9 Systemic lupus erythematosus, unspecified; R51 Headache
CPT/HCPCS: 36415; 70450; 71045; 80053; 81003; 81015; 82550; 83690; 83880; 84484; 85025; 85610; 85651; 85730; 86140; 87086; 93005; 96365; 96366; 96375; 99285; 99291; 99292; J0360; J1170; J1940; J2405; J2930